=== PATIENT | female | born 1965 | race Caucasian/White ===

== ENCOUNTER 2018-01-26 07:57 | Emergency (ER) | payer BC, MEDICAID ==
[2018-01-26] MEDS: TETRACAINE 0.5% 4 ML OPH RIGHT EYE (09:05)
[2018-01-26] MEDS: FLUORESCEIN STRIP RIGHT EYE (09:05)
== END 2018-01-26 09:35 | disposition home or self-care (01) ==
LOC: FTE 07:57
DX: H57.11 Ocular pain, right eye (principal); F17.210 Nicotine dependence, cigarettes, uncomplicated; R40.2412 Glasgow coma scale score 13-15, at arrival to emergency department
CPT/HCPCS: 99283